=== PATIENT | female | born 1970 ===

== ENCOUNTER 2018-05-27 07:18 | Outpatient (CLI) | payer OTHER ==
[~2018-05-27] VITALS: Ht 152.4 cm; Wt 66.7 kg
== END 2018-05-27 07:40 | disposition home or self-care (01) ==
LOC: OFIC 805 07:18
DX: R42 Dizziness and giddiness (principal); H90.3 Sensorineural hearing loss, bilateral; H69.82 Other specified disorders of Eustachian tube, left ear; M26.613 Adhesions and ankylosis of bilateral temporomandibular joint

== ENCOUNTER 2019-11-23 13:07 | Outpatient (CLI) | payer OTHER | END 2019-11-23 18:20 | disposition home or self-care (01) | LOC: OFIC 805 13:07 | PROVIDERS: ATTEND Otolaryngology | DX: H90.42 Sensorineural hearing loss, unilateral, left ear, with unrestricted hearing on the contralateral side (principal); H93.12 Tinnitus, left ear; M26.612 Adhesions and ankylosis of left temporomandibular joint; H69.82 Other specified disorders of Eustachian tube, left ear; R42 Dizziness and giddiness ==

== ENCOUNTER 2019-12-21 14:42 | Outpatient (CLI) | payer OTHER | END 2019-12-21 15:00 | disposition home or self-care (01) | LOC: OFIC 805 14:42 | PROVIDERS: ATTEND Otolaryngology | DX: H93.12 Tinnitus, left ear (principal) ==

== ENCOUNTER 2019-12-27 14:19 | Outpatient (CLI) | payer OTHER | END 2019-12-27 16:00 | disposition home or self-care (01) | LOC: OFIC 805 14:19 | PROVIDERS: ATTEND Otolaryngology Otology & Neurotology | DX: H90.A22 Sensorineural hearing loss, unilateral, left ear, with restricted hearing on the contralateral side (principal); H93.12 Tinnitus, left ear; R42 Dizziness and giddiness ==